=== PATIENT | female | born 1965 | race Caucasian/White ===

== ENCOUNTER 2016-09-03 00:08 | Emergency (ER) | payer OTHER ==
[~2016-09-03] VITALS: Ht 152.4 cm; Wt 77.1 kg
[~2016-09-03 00:08] MED LIST: ASPI81TA2 PO; FERR-58 PO; GABA300C PO; INSU100V10; LEVO50TA PO; LISI2.5T90 PO; METF850T PO; METO50TA3 PO; SUMA50TA PO
[2016-09-03] MEDS ORDERED: ACETAMINOPHEN ES 500 MG TABLET ONE (00:27)
[2016-09-03] MEDS ORDERED: ACETAMINOPHEN 325 MG TABLET PO ONE (00:30)
[2016-09-03] MEDS ORDERED: ONDANSETRON 4 MG TAB.RAPDIS ONE (00:41)
[2016-09-03] MEDS ORDERED: ONDANSETRON 4 MG TAB.RAPDIS SL ONE (01:00)
[2016-09-03 03:04] VITALS: BP 114/77
== END 2016-09-03 03:05 | disposition home or self-care (01) ==
LOC: ER 00:11
DX: J06.9 Acute upper respiratory infection, unspecified (principal); E03.9 Hypothyroidism, unspecified; E11.9 Type 2 diabetes mellitus without complications; E78.00 Pure hypercholesterolemia, unspecified; Z79.4 Long term (current) use of insulin; Z79.82 Long term (current) use of aspirin; Z90.710 Acquired absence of both cervix and uterus
CPT/HCPCS: 71010-TC; 87400; A4606; Q0162; Z7610

== ENCOUNTER 2016-10-25 19:09 | Inpatient (IN) | payer OTHER ==
[~2016-10-25] VITALS: Ht 152.4 cm; Wt 70.3 kg
[2016-10-25 20:25] LABS: BASOPHILS # (AUTO) 0.1 /CMM (0.0-0.2); BASOPHILS % (AUTO) 0.6 % (0.0-2.0); DIFF TOTAL % 100 %; EOSINOPHILS # (AUTO) 0.1 /CMM (0.0-0.7); HEMATOCRIT 36 % (33-45); HEMOGLOBIN 11.9 g/dL (11.5-14.8); LYMPHOCYTES # (AUTO) 2.7 /CMM (0.8-4.8); LYMPHOCYTES % (AUTO) 25.5 % (20.0-44.0); MEAN CORPUSCULAR HEMOGLOBIN 27 PG (26.0-33.0); MEAN CORPUSCULAR HGB CONC 33 g/dl (31.0-36.0); MEAN CORPUSCULAR VOLUME 81 fL (82-100); MONOCYTES # (AUTO) 0.5 /CMM (0.1-1.30); MONOCYTES % (AUTO) 4.9 % (2.0-12.0); NEUTROPHILS # (AUTO) 7.2 /CMM (1.8-8.9); PLATELET COUNT (AUTO) 284 /CMM (150-450); WHITE BLOOD COUNT (AUTO) 10.6 K/uL (4.3-11.0)
[2016-10-25 20:38] LABS: INR 0.94 (0.87-1.13); PROTHROMBIN TIME 9.9 SECS (9.5-12.7)
[2016-10-25 20:40] LABS: ALANINE AMINOTRANSFERASE 28 U/L (12-78); ALBUMIN 3.1 g/dL (3.4-5.0); ANION GAP 12 (5-14); ASPARTATE AMINOTRANSFERASE 11 U/L (15-37); BILIRUBIN,TOTAL 0.2 mg/dL (0.2-1.0); CALCIUM, SERUM 8.6 mg/dL (8.5-10.1); CARBON DIOXIDE 28 mmol/L (21-32); CHLORIDE 103 mmol/L (98-107); CREATININE 0.6 mg/dL (0.6-1.3); GFR 106 mL/min (>60); GLUCOSE 230 mg/dL (74-106); SODIUM SERUM 139 mmol/L (136-145); TOTAL PROTEIN, SERUM 7.3 g/dL (6.4-8.2); UREA NITROGEN, BLOOD 15 mg/dL (7-18)
[2016-10-25 20:44] LABS: TROPONIN I < 0.017 ng/mL (0.00-0.056)
[2016-10-25 20:45] LABS: INDIRECT BILIRUBIN 0.2 mg/dL (0.0-1.1)
[2016-10-25] MEDS ORDERED: ASPIRIN 325 MG TABLET ONE (21:18)
[2016-10-25] MEDS ORDERED: NITROGLYCERIN PACKET 1 GM PACKET ONE (21:19)
[2016-10-25] MEDS ORDERED: NITROGLYCERIN PACKET 1 GM PACKET TOP ONE (21:30)
[2016-10-25] MEDS ORDERED: KETOROLAC TROMETHAMINE INJ 30 MG/ML VIAL IV ONE (21:30)
[2016-10-25] MEDS ORDERED: ASPIRIN 325 MG TABLET PO ONE (21:30)
[2016-10-25] MEDS ORDERED: MAGNESIUM HYDROXIDE 30 ML UDC PO PRN (22:30)
[2016-10-25] MEDS ORDERED: ACETAMINOPHEN 325 MG TABLET PO PRN (22:30)
[2016-10-25] MEDS ORDERED: ZOLPIDEM TARTRATE 5 MG TABLET PO PRN (22:30)
[2016-10-25] MEDS ORDERED: Z GUARD REMEDY 2 OZ OINT TP PRN (22:30)
[2016-10-25] MEDS ORDERED: DEXTROSE 50%-WATER 50 ML DISP.SYRIN IV PRN (22:30)
[2016-10-25] MEDS ORDERED: HYDROCODONE/APAP 5/325MG 1 EACH TABLET ONE (22:39)
[2016-10-25] MEDS ORDERED: GABAPENTIN 300 MG CAPSULE ONE (22:41)
[2016-10-25 22:43] VITALS: BP 125/80
[2016-10-25] MEDS: GABAPENTIN 300 MG CAPSULE PO SCH (22:45)
[2016-10-25] MEDS: HYDROCODONE/APAP 5/325MG 1 EACH TABLET PO PRN (22:46)
[2016-10-25] MEDS: BLOOD SUGAR DIAGNOSTIC 1 EACH STRIP VI SCH (22:50)
[2016-10-25] MEDS: *INSULIN REGULAR(HUMULIN R)HUM 100 UNIT/ML VIAL SQ PRN (22:53)
[2016-10-25] MEDS ORDERED: DOCU100C22 PO (23:02)
[2016-10-25] MEDS ORDERED: ERGO50003 PO (23:02)
[2016-10-25] MEDS ORDERED: EZET10TA PO (23:02)
[2016-10-25] MEDS ORDERED: INSU100C10 SQ (23:02)
[2016-10-25] MEDS ORDERED: LISI-607 PO (23:02)
[2016-10-25] MEDS ORDERED: EXEN2PEN SQ (23:02)
[2016-10-25] MEDS ORDERED: AMIT10TA6 PO (23:02)
[2016-10-25] MEDS ORDERED: TRAM50TA2 PO (23:02)
[2016-10-25] MEDS ORDERED: OMEP20CA10 PO (23:02)
[2016-10-25] MEDS ORDERED: SERT50TA PO (23:02)
[2016-10-25] MEDS ORDERED: OXYB10TA PO (23:02)
[2016-10-25] MEDS ORDERED: TEMA15CA PO (23:02)
[2016-10-25] MEDS ORDERED: NORT25CA PO (23:02)
[2016-10-25] MEDS ORDERED: CYCL5TAB PO (23:02)
[2016-10-26] VITALS: BP 96/55
[2016-10-26] MEDS ORDERED: ACETAMINOPHEN 325 MG TABLET ONE (00:32)
[2016-10-26] MEDS ORDERED: HYDROCODONE/APAP 5/325MG 1 EACH TABLET ONE (03:22)
[2016-10-26] MEDS ORDERED: ONDANSETRON HCL/PF 4 MG/2 ML VIAL ONE (03:25)
[2016-10-26] MEDS: HYDROCODONE/APAP 5/325MG 1 EACH TABLET PO PRN ×3 (03:26→20:20)
[2016-10-26] MEDS: ONDANSETRON HCL/PF 4 MG/2 ML VIAL IVP PRN ×3 (03:29→20:19)
[2016-10-26 04:00] VITALS: BP 134/85
[2016-10-26] MEDS: BLOOD SUGAR DIAGNOSTIC 1 EACH STRIP VI SCH ×4 (06:31→21:29)
[2016-10-26] MEDS: INSULIN REGULAR, HUMAN 100 UNIT/ML 3 ML VIAL SQ PRN ×2 (06:36→11:41)
[2016-10-26 07:24] LABS: BASOPHILS % (AUTO) 0.2 % (0.0-2.0); DIFF TOTAL % 100 %; EOSINOPHILS # (AUTO) 0.1 /CMM (0.0-0.7); EOSINOPHILS % (AUTO) 1.1 % (0.0-6.0); HEMATOCRIT 33 % (33-45); HEMOGLOBIN 10.8 g/dL (11.5-14.8); LYMPHOCYTES # (AUTO) 2.2 /CMM (0.8-4.8); LYMPHOCYTES % (AUTO) 23.2 % (20.0-44.0); MEAN CORPUSCULAR HEMOGLOBIN 27 PG (26.0-33.0); MEAN CORPUSCULAR HGB CONC 33 g/dl (31.0-36.0); MEAN CORPUSCULAR VOLUME 81 fL (82-100); MONOCYTES # (AUTO) 0.4 /CMM (0.1-1.30); MONOCYTES % (AUTO) 4.1 % (2.0-12.0); NEUTROPHILS # (AUTO) 6.7 /CMM (1.8-8.9); NEUTROPHILS % (AUTO) 71.4 % (43.0-81.0); PLATELET COUNT (AUTO) 267 /CMM (150-450); RED BLOOD CELL COUNT(AUTO) 4.09 MIL/uL (4.0-5.2); WHITE BLOOD COUNT (AUTO) 9.4 K/uL (4.3-11.0)
[2016-10-26 07:43] LABS: CALCIUM, SERUM 8.8 mg/dL (8.5-10.1); CREATININE 0.5 mg/dL (0.6-1.3); PHOSPHORUS 3.3 mg/dL (2.5-4.9); POTASSIUM 4.4 mmol/L (3.5-5.1)
[2016-10-26] MEDS: LEVOTHYROXINE SODIUM 50 MCG TABLET PO SCH (07:59)
[2016-10-26] MEDS: PANTOPRAZOLE 40 MG TABLET.DR PO SCH (07:59)
[2016-10-26 08:00] VITALS: BP 133/79
[2016-10-26] MEDS: METFORMIN 850 MG TABLET PO SCH ×3 (08:00→16:56)
[2016-10-26] MEDS: ASPIRIN 81 MG TAB.CHEW PO SCH (08:00)
[2016-10-26] MEDS: FERROUS SULFATE (325 MG) 325 MG/TAB TABLET PO SCH ×2 (08:00→16:56)
[2016-10-26] MEDS: TRAMADOL HCL 50 MG TABLET PO SCH ×2 (08:00→16:58)
[2016-10-26] MEDS: SERTRALINE HCL 50 MG TABLET PO SCH (08:00)
[2016-10-26] MEDS: LISINOPRIL (5MG) 5 MG TABLET PO SCH (08:01)
[2016-10-26] MEDS: METOPROLOL TARTRATE 50 MG TABLET PO SCH ×2 (08:02→16:57)
[2016-10-26] MEDS: EZETIMIBE 10 MG TABLET PO SCH (08:04)
[2016-10-26] MEDS ORDERED: LISINOPRIL (5MG) 5 MG TABLET PO SCH (09:00)
[2016-10-26] MEDS ORDERED: ASPIRIN 81 MG TAB.CHEW PO SCH (09:00)
[2016-10-26] MEDS ORDERED: SUMATRIPTAN SUCCINATE 25 MG TABLET PO PRN (09:30)
[2016-10-26] MEDS ORDERED: IV SET PRIMARY 1 EA INFUS.SET MC ONE (11:22)
[2016-10-26] MEDS ORDERED: IV SET PRIMARY PUMP SET 1 EA INFUS.SET MC ONE (11:23)
[2016-10-26] MEDS: OXYBUTYNIN CHLORIDE ER 5 MG TAB PO SCH (11:27)
[2016-10-26] MEDS: Magnesium 1GM/D5W 100ML PREMIX 100 ML IV SCH ×4 (11:27→16:56)
[2016-10-26 12:00] VITALS: BP 116/63
[2016-10-26 16:00] VITALS: BP 94/61
[2016-10-26] MEDS: *INSULIN REGULAR(HUMULIN R)HUM 100 UNIT/ML VIAL SQ PRN (17:47)
[2016-10-26] MEDS: NORTRIPTYLINE HCL 25 MG CAPSULE PO SCH (18:28)
[2016-10-26] MEDS: TEMAZEPAM 15 MG CAPSULE PO SCH (18:29)
[2016-10-26 20:00] VITALS: BP 103/67
[2016-10-26] MEDS: AMITRIPTYLINE HCL 10 MG TABLET PO SCH (20:14)
[2016-10-26] MEDS: GABAPENTIN 300 MG CAPSULE PO SCH (21:27)
[2016-10-27 04:00] VITALS: BP_SYST 121; BP_DIAS 7; BP_DIAS 73
[2016-10-27] MEDS: BLOOD SUGAR DIAGNOSTIC 1 EACH STRIP VI SCH ×2 (05:52→12:21)
[2016-10-27 07:25] LABS: BASOPHILS % (AUTO) 0.3 % (0.0-2.0); DIFF TOTAL % 100 %; EOSINOPHILS # (AUTO) 0.1 /CMM (0.0-0.7); EOSINOPHILS % (AUTO) 1.5 % (0.0-6.0); HEMATOCRIT 35 % (33-45); HEMOGLOBIN 11.5 g/dL (11.5-14.8); LYMPHOCYTES # (AUTO) 2.4 /CMM (0.8-4.8); MEAN CORPUSCULAR HEMOGLOBIN 27 PG (26.0-33.0); MEAN CORPUSCULAR HGB CONC 33 g/dl (31.0-36.0); MEAN CORPUSCULAR VOLUME 82 fL (82-100); MONOCYTES # (AUTO) 0.5 /CMM (0.1-1.30); MONOCYTES % (AUTO) 5.4 % (2.0-12.0); NEUTROPHILS # (AUTO) 6.8 /CMM (1.8-8.9); NEUTROPHILS % (AUTO) 68.8 % (43.0-81.0); PLATELET COUNT (AUTO) 266 /CMM (150-450); WHITE BLOOD COUNT (AUTO) 9.9 K/uL (4.3-11.0)
[2016-10-27 07:42] LABS: CALCIUM, SERUM 8.1 mg/dL (8.5-10.1); CREATININE 0.5 mg/dL (0.6-1.3); POTASSIUM 4.3 mmol/L (3.5-5.1)
[2016-10-27 07:51] LABS: THYROID STIMULATING HORMONE 1.772 uIU/mL (0.358-3.74)
[2016-10-27 08:00] VITALS: BP 111/78
[2016-10-27] MEDS ORDERED: REGADENOSON 0.4 MG/5 ML DISP.SYRIN IVP ONE (09:00)
[2016-10-27] MEDS: METFORMIN 850 MG TABLET PO SCH ×3 (09:00→17:00)
[2016-10-27] MEDS ORDERED: CT SWABBABLE VALVE TRANS SET 1 EA INFUS.SET MC ONE (09:31)
[2016-10-27] MEDS ORDERED: IV NS 0.9% 250 ML IV ONE (09:31)
[2016-10-27] MEDS ORDERED: IOHEXOL-300 100 ML VIAL IV ONE (09:31)
[2016-10-27 10:00] VITALS: BP 111/78
[2016-10-27] MEDS: HYDROCODONE/APAP 5/325MG 1 EACH TABLET PO PRN ×2 (10:08→16:49)
[2016-10-27] MEDS: SERTRALINE HCL 50 MG TABLET PO SCH (10:09)
[2016-10-27] MEDS: TRAMADOL HCL 50 MG TABLET PO SCH ×2 (10:09→17:05)
[2016-10-27] MEDS: OXYBUTYNIN CHLORIDE ER 5 MG TAB PO SCH (10:10)
[2016-10-27] MEDS: LISINOPRIL (5MG) 5 MG TABLET PO SCH (10:10)
[2016-10-27] MEDS: LEVOTHYROXINE SODIUM 50 MCG TABLET PO SCH (10:11)
[2016-10-27] MEDS: PANTOPRAZOLE 40 MG TABLET.DR PO SCH (10:11)
[2016-10-27] MEDS: FERROUS SULFATE (325 MG) 325 MG/TAB TABLET PO SCH ×2 (10:11→16:43)
[2016-10-27] MEDS: ASPIRIN 81 MG TAB.CHEW PO SCH (10:11)
[2016-10-27] MEDS: METOPROLOL TARTRATE 50 MG TABLET PO SCH ×2 (10:12→17:00)
[2016-10-27] MEDS: *INSULIN REGULAR(HUMULIN R)HUM 100 UNIT/ML VIAL SQ PRN (12:21)
[2016-10-27] MEDS: Magnesium 1GM/D5W 100ML PREMIX 100 ML IV SCH ×2 (14:17→15:35)
[2016-10-27] MEDS: EZETIMIBE 10 MG TABLET PO SCH (14:20)
[2016-10-27 17:00] VITALS: BP 90/50
[2016-10-27] MEDS: AMITRIPTYLINE HCL 10 MG TABLET PO SCH (17:05)
[2016-10-27] MEDS: NORTRIPTYLINE HCL 25 MG CAPSULE PO SCH (17:08)
[2016-10-27] MEDS: TEMAZEPAM 15 MG CAPSULE PO SCH (17:08)
[2016-10-28] MEDS ORDERED: ERGOCALCIFEROL (VITAMIN D 2) 50,000 UNIT CAPSULE PO SCH (09:00)
== END 2016-10-27 18:26 | disposition home or self-care (01) | DRG 203 ==
LOC: ER 19:15 → TELE1 22:00 → MEDSG1 10-26 22:49
PROVIDERS: ADMIT Nurse Practitioner Acute Care; ATTEND Nurse Practitioner Acute Care
DX: R07.89 Other chest pain (principal); E11.65 Type 2 diabetes mellitus with hyperglycemia; K76.0 Fatty (change of) liver, not elsewhere classified; E44.1 Mild protein-calorie malnutrition; I10 Essential (primary) hypertension; E11.9 Type 2 diabetes mellitus without complications; D50.9 Iron deficiency anemia, unspecified; E03.9 Hypothyroidism, unspecified; E78.5 Hyperlipidemia, unspecified; E66.01 Morbid (severe) obesity due to excess calories; M06.9 Rheumatoid arthritis, unspecified; G89.29 Other chronic pain; M54.5 Low back pain; Z90.710 Acquired absence of both cervix and uterus; M19.90 Unspecified osteoarthritis, unspecified site; N83.202 Unspecified ovarian cyst, left side; E83.42 Hypomagnesemia; F32.9 Major depressive disorder, single episode, unspecified; E78.00 Pure hypercholesterolemia, unspecified; Z79.84 Long term (current) use of oral hypoglycemic drugs
CPT/HCPCS: 36415; 71010-TC; 74178; 76856-TC; 80048-TC; 80061-TC; 80076-TC; 82962-TC; 83690-TC; 83735-TC; 84100-TC; 84443-TC; 84484-TC; 85025-TC; 85730-TC; 93307-TC; 94799-TC; A4606; A9502; J1815; J2405; J2785; J3475; J7050; Q9967; Z7610

== ENCOUNTER 2017-02-27 20:21 | Emergency (ER) | payer OTHER ==
[~2017-02-27] VITALS: Ht 152.4 cm; Wt 79.4 kg
[~2017-02-27 20:21] MED LIST changes: +AMIT10TA6 PO; +CYCL5TAB PO; +DOCU100C22 PO; +ERGO50003 PO; +EXEN2PEN SQ; +EZET10TA PO; +INSU100C10 SQ; +LISI-607 PO; -LISI2.5T90 PO; +NORT25CA PO; +OMEP20CA10 PO; +OXYB10TA PO; +SERT50TA PO; +TEMA15CA PO; +TRAM50TA2 PO
[2017-02-27 20:29] VITALS: BP 118/74
[2017-02-27] MEDS ORDERED: ACETAMINOPHEN 325 MG TABLET ONE (20:54)
[2017-02-27] MEDS ORDERED: ACETAMINOPHEN 325 MG TABLET PO ONE (21:00)
== END 2017-02-27 21:44 | disposition home or self-care (01) ==
LOC: ER 20:30
DX: M79.671 Pain in right foot (principal); I10 Essential (primary) hypertension; E11.9 Type 2 diabetes mellitus without complications; E78.00 Pure hypercholesterolemia, unspecified; E03.9 Hypothyroidism, unspecified; Z90.710 Acquired absence of both cervix and uterus; Z79.4 Long term (current) use of insulin; Z79.82 Long term (current) use of aspirin
CPT/HCPCS: 73630; 99284; A4606; Z7610

== ENCOUNTER 2017-08-20 19:36 | Emergency (ER) | payer OTHER ==
[~2017-08-20] VITALS: Ht 152.4 cm; Wt 72.6 kg
[~2017-08-20 19:36] MED LIST changes: +ASPI-1169 PO; -ASPI81TA2 PO; +ERGO500014 PO; -ERGO50003 PO; -EZET10TA PO; +EZET10TA14 PO; +METO50TA16 PO; -METO50TA3 PO
[2017-08-20 19:44] VITALS: BP 117/77
[2017-08-20] MEDS ORDERED: ACETAMINOPHEN ES 500 MG TABLET PO ONE (21:00)
[2017-08-20] MEDS ORDERED: ACETAMINOPHEN ES 500 MG TABLET ONE (21:02)
== END 2017-08-20 23:32 | disposition home or self-care (01) ==
LOC: ER 19:38
DX: I87.2 Venous insufficiency (chronic) (peripheral) (principal); E03.9 Hypothyroidism, unspecified; E11.9 Type 2 diabetes mellitus without complications; E78.00 Pure hypercholesterolemia, unspecified; I10 Essential (primary) hypertension; Z79.4 Long term (current) use of insulin; Z79.82 Long term (current) use of aspirin; Z90.710 Acquired absence of both cervix and uterus
CPT/HCPCS: 99282; A4606; Z7610

== ENCOUNTER 2017-12-09 18:51 | Emergency (ER) | payer MEDICARE, OTHER ==
[~2017-12-09] VITALS: Ht 157.5 cm; Wt 74.8 kg
[2017-12-09 18:51] VITALS: BP 105/59
[~2017-12-09 18:51] MED LIST changes: +DOCU-277 PO; -DOCU100C22 PO; -FERR-58 PO; +FERR325T24 PO
[2017-12-09] MEDS ORDERED: NAPROXEN 500 MG TABLET PO SCH (19:30)
[2017-12-09] MEDS ORDERED: NAPROXEN 250 MG TABLET ONE (19:31)
== END 2017-12-09 19:34 | disposition home or self-care (01) ==
LOC: ER 18:52
DX: M70.21 Olecranon bursitis, right elbow (principal); E78.00 Pure hypercholesterolemia, unspecified; E11.9 Type 2 diabetes mellitus without complications; I10 Essential (primary) hypertension; Z79.82 Long term (current) use of aspirin; Z79.4 Long term (current) use of insulin; Y93.89 Activity, other specified
CPT/HCPCS: 99282; A4606; Z7610

== ENCOUNTER 2018-02-20 13:28 | Emergency (ER) | payer MEDICARE, OTHER ==
[~2018-02-20] VITALS: Ht 152.4 cm; Wt 72.6 kg
[~2018-02-20 13:28] MED LIST changes: -DOCU-277 PO; +DOCU100C22 PO
--- NOTE | 2018-02-20 13:45 | NUR ---
PRESENTS TO ER C/O BILAT FLANK PAIN X 2 DAYS. ALSO C/O UTI SYMPTOMS. A/OX 4, BREATHING EVEN AND UNLABORED. NO SOB, NAD, VITALS STABLE. SAFETY AND COMFORT MEASURES IN PLACE. AWAITING MD ORDERS.
--- NOTE | 2018-02-20 14:15 | NUR ---
URINE OBTAINED AND SENT TO LAB.
[2018-02-20] MEDS ORDERED: HYDROCODONE/APAP 5/325MG 1 EACH TABLET PO ONE (14:30)
[2018-02-20 14:34] LABS: APPEARANCE,URINE Clear (CLEAR); BILIRUBIN,URINE Negative (NEGATIVE); BLOOD, URINE Negative Ery/uL (NEGATIVE); COLOR,URINE Yellow (YELLOW); KETONES,URINE Negative (NEGATIVE); LEUKOCYTE ESTERASE ,URINE Negative (NEGATIVE); NITRITE, URINE Negative (NEGATIVE); PH,URINE 5.5 (5.0-8.0); PROTEIN,URINE Negative (NEGATIVE); UGLUCOSE >=1000 mg/dL (NEGATIVE); UROBILINOGEN,URINE 0.2 EU/dL (0.2)
[2018-02-20] MEDS ORDERED: HYDROCODONE/APAP 5/325MG 1 EACH TABLET ONE (14:34)
--- NOTE | 2018-02-20 15:01 | NUR ---
AGRICULTURE LABORATORY TECHNICIAN AT BEDSIDE FOR BLOOD DRAW.
[2018-02-20 15:08] LABS: BASOPHILS % (AUTO) 0.4 % (0.0-2.0); EOSINOPHILS % (AUTO) 0.7 % (0.0-6.0); HEMATOCRIT 37 % (33-45); HEMOGLOBIN 12.2 g/dL (11.5-14.8); LYMPHOCYTES # (AUTO) 2.3 /CMM (0.8-4.8); LYMPHOCYTES % (AUTO) 25.5 % (20.0-44.0); MEAN CORPUSCULAR HEMOGLOBIN 26 PG (26.0-33.0); MEAN CORPUSCULAR HGB CONC 33 g/dl (31.0-36.0); MEAN CORPUSCULAR VOLUME 78 fL (82-100); MONOCYTES # (AUTO) 0.5 /CMM (0.1-1.30); MONOCYTES % (AUTO) 5.9 % (2.0-12.0); NEUTROPHILS # (AUTO) 6.2 /CMM (1.8-8.9); NEUTROPHILS % (AUTO) 67.5 % (43.0-81.0); PLATELET COUNT (AUTO) 283 /CMM (150-450); RDW COEFFICIENT OF VARIATION 16.8 (11.5-15.0); RED BLOOD CELL COUNT(AUTO) 4.77 MIL/uL (4.0-5.2); WHITE BLOOD COUNT (AUTO) 9.2 K/uL (4.3-11.0)
--- NOTE | 2018-02-20 15:10 | NUR ---
ENDORSED FROM [facility]. PT STABLE CONDITION. VSS. NEG ACUTE DISTRESS. SAFETY MEASURES IN PLACE. WILL CONTINUE TO MONITOR.
[2018-02-20 15:13] LABS: CALCIUM, SERUM 8.7 mg/dL (8.5-10.1); CREATININE 0.7 mg/dL (0.6-1.3); POTASSIUM 4.3 mmol/L (3.5-5.1)
[2018-02-20 15:42] VITALS: BP 130/82
== END 2018-02-20 15:43 | disposition home or self-care (01) ==
LOC: ER 13:31
DX: R10.30 Lower abdominal pain, unspecified (principal); I10 Essential (primary) hypertension; E11.9 Type 2 diabetes mellitus without complications; E03.9 Hypothyroidism, unspecified; E78.00 Pure hypercholesterolemia, unspecified; Z90.710 Acquired absence of both cervix and uterus; Z79.82 Long term (current) use of aspirin; Z79.84 Long term (current) use of oral hypoglycemic drugs; Z79.4 Long term (current) use of insulin; Z87.442 Personal history of urinary calculi
CPT/HCPCS: 36415; 76770-TC; 80048-TC; 81000-TC; 84703-TC; 85025-TC; 87086-TC; A4606; Z7610